=== PATIENT | female | born 1985 | race Caucasian/White ===

== ENCOUNTER 2023-03-21 00:43 | Day surgery (SDC) | payer BC, SELFPAY ==
[2023-03-12 12:47] VITALS: BMI 22.3
--- NOTE | 2023-03-12 12:48 | PC.NURSE ---
Report to the Outpatient Waiting Room, entrance under the green pavilion located off [facility], at time _0600_ on date _[id number]_. Planned Procedure Time: _0730_. Time changes happen often and if your time is changed the preop area will call you the afternoon before. - You and your visitor will be asked to self-screen and do not enter if you have any COVID symptoms. - A mask is optional within the hospital at this time. Patients may have clear liquids (water, carbonated beverages, clear teas, apple juice) until 3 hours prior to surgery with a maximum of 20 ounces. - No food from midnight until time of surgery Take the following medications with a SIP of water the morning of surgery: ___Alprazolam if needed. DO NOT STOP ANY OF YOUR OTHER PRESCRIPTION MEDICATIONS PRIOR TO SURGERY ?EXCEPT THE FOLLOWING Medications to discontinue per physician ____None Date to take last dose Please no make-up, nail vietnamese, hairspray, perfume, deodorant, or body powder the day of surgery. No jewelry (including any body piercings) or valuables the day of surgery, leave them at home. Please take a shower or bath the night before, or the morning of, surgery with an antibacterial soap. Wear comfortable, loose fitting clothing. - Jewelry must be removed prior to entering the operating room. Rings and piercings that are not removed may be cut off. - The hospital will not accept responsibility for valuables. - Please leave all valuables, including medications, at home the day of surgery. If you are going home after surgery, a licensed cab driver must drive you home. - NO public transportation without another adult if you receive anesthesia. - We recommend that an adult stay with you for 24 hours following discharge. - We also recommend that you do not drive, make important decision, drink alcoholic beverages, or take any drugs that were not prescribed by your health care provider for at least 24 hours after your discharge time. Follow any additional instructions given to you from your surgeon. If you or anyone in your household have experienced Covid symptoms in the past week, please notify your surgeon or the nurse liaison at the phone number below for possible testing. Telephone instructions given to __Hope___and asked if any additional questions and then verbalized understanding. Patient advised to call surgeon office or pre surgery nurse liaison [phone] if any additional questions.
--- NOTE | 2023-03-20 14:56 | WPDANESEPPF ---
Anes - Initial Pre Proc Eval Procedure: Operation Date: 03/21/23 07:30 Proposed Procedures p Hysteroscopy with Possible Dilation and Curettage, Novasure Endometrial Ablation, - Alivia Hutchins DO s Diagnostic Laparoscopy, Possible Resection or Cauterization of Endometriosis, Possible Lysis of Adhesions, Possible Bilateral Salpingectomy - Alivia Hutchins DO Date/Time: 03/20/23 14:56 Surgeon: Alivia Hutchins DO Pre Op Diagnosis: Heavy Menst Bleeding, Pelvic Pain Patient Data Age: 37 Gender: F Height: 1.65 m Weight: 60.9 kg Allergies Allergy/AdvReac Type Severity Reaction Status Date / Time No Known Allergies Allergy Verified 03/12/23 12:39 Home Medications Medication Instructions Recorded Confirmed Type alprazolam 0.5 mg tablet 0.5 mg PO TID PRN Anxiety 03/12/23 03/12/23 History Patient hx anesthesia problems: none Family hx anesthesia problems: none Results Review: All pre-operative results and documents have been reviewed as part of the pre-operative evaluation. [facility] Social History Social History Smoking packs per day: 0.5 Smoking cigarettes per day: 10.0 Years smoked: 10 Smoking pack-years: 5.00 Smoking status: Former smoker Smoking end date: 03/12/20 Alcohol intake: current Substance use type: marijuana Other substance usage details: Rarely Living arrangements: alone Spiritual care concerns: No Anes - Eval Final PreProcedure Day of Procedure 03/20/23 14:56 Patient weight: normal Heart: regular rate and rhythm Lungs: clear to auscultation Airway: Mallampati scale class II Neurological: alert and oriented Last oral intake: >/= 8 hours ASA classification: II Emergent: no Anesthetic plan: proceed Anesthesia type and monitoring: general ETT and standard monitoring Results Review: All pre-operative results and documents have been reviewed as part of the pre-operative evaluation. Informed Consent: The patient's anesthetic plan and its attendant risks and benefits were discussed with the patient/family/POA. Questions were solicited and answers provided to the satisfaction of the patient/family/POA.
[2023-03-21] VITALS (9 sets, daily range): BP systolic 114–120; BP diastolic 63–79; PULSE 61–90; RESP 14–18; TEMP 36.2–36.8; O2SAT 97–100
[2023-03-21] MEDS: LACTATED RINGERS 1,000 ML 30 ML IV CONT ×2 (06:30→08:52)
[2023-03-21] MEDS: GABAPENTIN 300 MG CAPSULE PO (07:00)
[2023-03-21] MEDS: ACETAMINOPHEN 500 MG TABLET 1000 MG PO (07:00)
--- NOTE | 2023-03-21 07:19 | WPDHPUPDATE1 ---
History and Physical Update Update Date/Time: 03/21/23 07:19 History and Physical has been reviewed, including an updated exam of the patient. There are NO changes in the patient's condition. Risks, benefits, and alternatives have been discussed and questions answered. Patient agrees to proceed with procedure.
--- NOTE | 2023-03-21 07:19 | PM.IMHP ---
H&P: HPI History of Present Illness Date/Time: 03/21/23 07:19 Chief Complaint: I'm here for surgery Narrative: Hope presents desiring permanent sterilization via diagnostic laparoscopy, bilateral salpingectomy, possible resection or ablation of endometriosis and treatment of her heavy, painful periods with hysteroscopy, D&C, ablation. Review of Systems Review of Systems: All systems reviewed & are unremarkable except as noted in HPI and below PMFSH Social History Social History Smoking packs per day: 0.5 Smoking cigarettes per day: 10.0 Years smoked: 10 Smoking pack-years: 5.00 Smoking status: Former smoker Smoking end date: 03/12/20 Alcohol intake: current Substance use type: marijuana Other substance usage details: Rarely Living arrangements: alone Spiritual care concerns: No Meds Home Medications and Allergies Home Medications Medication Instructions Recorded Confirmed Type alprazolam 0.5 mg tablet 0.5 mg PO TID PRN Anxiety 03/12/23 03/12/23 History Allergies Allergy/AdvReac Type Severity Reaction Status Date / Time No Known Allergies Allergy Verified 03/12/23 12:39 Exam Const: General: comfortable and no acute distress Eyes: General: appearance normal, both eyes and all related structures Neck: Neck: supple Resp: Effort & Inspection: normal respiratory effort Auscultation: clear to auscultation bilaterally Cardio: Rate: regular rate Rhythm: regular rhythm GI: GI Palp: Yes Soft to palpation Auscultation: normal bowel sounds Skin: General skin exam: normal color and no rashes or lesions noted Neuro: General: gait normal Speech: normal speech Motor exam (neuro): 5/5 motor strength present throughout Psych: Mental Status: mental status grossly normal Assessment and Plan Assessment and plan (1) Dysmenorrhea: Code(s): N94.6 - Dysmenorrhea, unspecified Status: Acute (2) Sterilization: Code(s): Z30.2 - Encounter for sterilization Status: Acute (3) Heavy menstrual bleeding: Code(s): N92.0 - Excessive and frequent menstruation with regular cycle Status: Acute (4) Abnormal uterine bleeding: Code(s): N93.9 - Abnormal uterine and vaginal bleeding, unspecified Status: Acute Plan Diagnostic laparoscopy, bilateral salpingectomy, possible excision or ablation of endometriosis. Hysteroscopy, D&C, ablation.
[2023-03-21] MEDS: DOXYCYCLINE 100 MG/NS 100 ML 100 MG/100 ML BAG IVPB (08:25)
[2023-03-21] MEDS: BUPIVACAINE/EPINEPHRINE 0.5% 30 ML VIAL INFILTRATE (08:28)
--- NOTE | 2023-03-21 08:46 | W.PM.PROC2 ---
Procedure Note - Detailed Date of Procedure 03/21/23 Pre-op Diagnosis Abnormal uterine bleeding Heavy menstrual bleeding Dysmenorrhea Pelvic pain Desires permanent sterilization Post-op Diagnosis Same (Endometriosis, Stage I) Procedure Performed Diagnostic laparoscopy, bilateral salpingectomy, resection and ablation of endometriosis. Hysteroscopy, D&C, Novasure ablation. Surgeon Alivia Hutchins DO Cellular [employer]ologist Petra Anesthesia General Indications Desires permanent sterilization, diagnosis and treatment of chronic pelvic pain and dysmenorrhea, non-hormonal treatment of heavy, abnormal uterine bleeding Findings Normal appearing vulva and vaginal canal. Large cervix. Uterus anteverted and slightly deviated to the patient's left sounded to 8 cm. The uterine cavity was unremarkable, both tubal ostia were easily visualized. Internally, the bowels liver and stomach appeared grossly unremarkable. The uterus was normal. The ovaries appeared normal. The tubes were normal. The right tube contained a paratubal cyst that had torsed on itself and attached to the right uterosacral area. There were several lesions of endometriosis in the posterior cul-de-sac and on the bladder flap. There was 1 endometriosis lesion up near some filmy adhesions attached to the cecum. The ovarian fossas were clear. Description of Procedure Patient was taken to the operating room where she was placed under general anesthesia. She was prepped and draped in the normal sterile fashion in a dorsal lithotomy position. No preoperative antibiotics were indicated. A time-out was performed. A speculum was placed in the vagina and the cervix was visualized. The posterior lip was grasped with a single-tooth tenaculum. The cervix was dilated up to accommodate the of the hysteroscope. The scope was introduced after a prime cycle was completed. The scope revealed normal shape and contour of the uterine cavity. Both tubal ostia were easily visualized. Measurements of the uterine cavity were completed. Once the scope was removed, a thorough curettage of the entire cavity was performed with return of moderate tissue. This was passed off as a specimen. The NovaSure device was then introduced. Cavity length was 5.5 cm, cavity width was 3.5 cm. The device was activated at a power of 106 w for 70 seconds. The device was then removed from the uterine cavity. The tenaculum and speculum were removed. Gloves were changed and attention was then turned to the abdomen. Skin above the umbilicus was grasped with 2 penetrating towel clamps and the area was injected with local. A small incision was made and a Veress needle was introduced. The saline water drop test was performed to confirm intraperitoneal placement. CO2 insufflation was then started and the abdomen was brought to a pressure of 15 mmHg. Once this was achieved, the Veress needle was removed and a 5 mm trocar was introduced. Survey of the abdomen revealed no evidence of bowel or vascular injury. The patient was then placed in steep Trendelenburg position. Additional trocar sites in the right and left lower quadrants were identified, injected and incised. 5 mm trocars were introduced under direct visualization. I had hoped to perform the salpingectomy without the aid of the uterine manipulator, as I had hoped to avoid placing anything inside the uterus after the ablation, especially aplastic manipulator and an endometrial cavity that may still be warm. Unfortunately, endometriosis lesions were seen in the posterior cul-de-sac and in order to adequately assess them I needed to place the uterine manipulator. I then returned to the vagina and used a speculum to visualize the cervix. The posterior lip was grasped with a single-tooth tenaculum and a manipulator was placed. At this point I felt enough time had passed the cavity was probably cool enough to accommodate the manipulator. It was placed without difficulty and the balloon was infl
[2023-03-21] MEDS: fentaNYL CITRATE INJ (*CRX) 100 MCG/2 ML VIAL 25 MCG IV PUSH ×8 (09:23→09:47)
[2023-03-21] MEDS: oxyCODONE HCL (*CRX) 5 MG TAB IR PO (10:14)
== END 2023-03-21 10:58 | disposition home or self-care (01) ==
PROVIDERS: Visit Provider Obstetrics & Gynecology Gynecologic Oncology
PROC: 0U5B8ZZ Destruction of Endometrium, Via Natural or Artificial Opening Endoscopic (ICD-10-PCS; CPT 58563; principal; 2023-03-21 07:30)
PROC: (CPT 49320; 2023-03-21 07:30)
DX: N80.329 Endometriosis of the posterior cul-de-sac, unspecified depth (principal); N92.0 Excessive and frequent menstruation with regular cycle; Z30.2 Encounter for sterilization; N83.8 Other noninflammatory disorders of ovary, fallopian tube and broad ligament; N73.6 Female pelvic peritoneal adhesions (postinfective); N80.A0 Endometriosis of bladder, unspecified depth; N94.6 Dysmenorrhea, unspecified; R10.2 Pelvic and perineal pain; Z87.891 Personal history of nicotine dependence; F12.90 Cannabis use, unspecified, uncomplicated
CPT/HCPCS: 58661; 58662; 58563; 88302; 88305; A9270; J1100; J1596; J2250; J2405; J2704; J2710; J3010; J7030; J7120